=== PATIENT | female | born 1960 | race African-American/Black ===

== ENCOUNTER 2017-04-15 06:08 | Day surgery (SDC) | payer OTHER ==
[2017-04-15] MEDS ORDERED: LIDOCAINE HCL 2% (20ML MULTI-DOSE VIAL) NR ONE (07:14)
[2017-04-15] MEDS ORDERED: PROPOFOL 20 ML ONE ×2 (07:15)
[2017-04-15 07:21] VITALS: BMI 59.3
[2017-04-15 08:02] VITALS: TEMP 98.2
[2017-04-15 08:11] VITALS: PULSE 65
[2017-04-15 09:05] VITALS: BP 140/83
== END 2017-04-15 09:22 | disposition home or self-care (01) ==
LOC: JASU-ENDO 06:08
PROVIDERS: ATTEND Internal Medicine Gastroenterology
PROC: 0DB68ZX Excision of Stomach, Via Natural or Artificial Opening Endoscopic, Diagnostic (ICD-10-PCS; principal; 2017-04-15 07:30)
DX: Z01.818 Encounter for other preprocedural examination (principal); E66.9 Obesity, unspecified
CPT/HCPCS: 88305-TC; 88342-TC

== ENCOUNTER 2019-02-17 12:50 | Inpatient (IN) | payer OTHER ==
[2019-02-17] MEDS ORDERED: CLINDAMYCIN 600MG PREMIX IVPB 600 MG/50 ML BAG IVPB ONE (14:20)
--- NOTE | 2019-02-17 14:20 | PDOC ---
History of Present Illness - General Chief Complaint: Injury Stated Complaint: SLIP AND FALL Time Seen by Provider: 02/17/19 13:40 History Source: Patient Exam Limitations: No Limitations - History of Present Illness Initial Comments: 02/18/19 11:50 HPI: 58F PMH HTN BIBEMS after unwitnessed fall in her kitchen around 9:30am. Pt endorses LOC and not having eaten today. Denies preceding symptoms of nausea, warmth, chest pain, palpitations, abdominal pain. Pt currently complaining of knees and left foot pain, and low back pain. Denies post fall chest pain, palpitations, sob, n/v. Unknown headstrike but pt denies head and neck pain. Denies new numbness, tingling, and groin incontinence. Denies incontinence or tongue biting. Recent left knee replacement 11/2018; pt states her knee richie occasionally while walking. PCP - Dr. Ang Almaraz Meds - percocet, HCTZ, potassium Denies etoh, smoking, drug use Allergies reviewed No FHX SCD Past History - Past Medical History Allergies/Adverse Reactions: Allergies Allergy/AdvReac Type Severity Reaction Status Date / Time latex Allergy Verified 02/17/19 13:02 sulfamethoxazole Allergy Verified 02/17/19 13:02 Home Medications: Ambulatory Orders Hydrochlorothiazide 25 mg PO DAILY 04/14/17 Morphine Sulfate [Morphine Sulfate ER] 60 mg PO Q8H 04/14/17 Naproxen 500 mg PO BID PRN 04/14/17 Oxycodone HCl/Acetaminophen [Percocet 10-325 mg Tablet] 1 tab PO TID PRN Potassium Chloride [K-Dur -] 10 meq PO DAILY 04/14/17 Multivitamin [Daily Multiple Vitamin] 1 each PO DAILY 04/15/17 Cyanocobalamin [Vitamin B12 -] 100 mcg PO DAILY 02/17/19 Sennosides [Senna] 8.6 mg PO DAILY 02/17/19 Anemia: No Asthma: No Cancer: No Cardiac Disorders: No COPD: No CHF: No HTN: No Hypercholesterolemia: No - Surgical History Abdominal Surgery: No Appendectomy: No Cardiac Surgery: No Cholecystectomy: Yes Lung Surgery: No Neurologic Surgery: No Orthopedic Surgery: Yes (SUAD.ARTHROSCOPY,KNEE REPLAC-RIGHT) - Immunization History Immunization Up to Date: Yes - Psycho Social/Smoking Cessation Hx Smoking History: Never smoked Have you smoked in the past 12 months: No Information on smoking cessation initiated: No Hx Alcohol Use: No Drug/Substance Use Hx: No Hx Substance Use Treatment: No Review of Systems - Review of Systems Able to Perform ROS?: Yes Comments:: 02/18/19 11:50 ROS: CONSTITUTIONAL: Denies F / C HEENT: Denies headache, lightheadedness, dizziness, changes in vision / hearing RESP: Denies SOB CARD: Denies chest pain, palpitations GI: Denies N / V / D, abdominal pain, inability to tolerate PO NEURO: Denies new numbness, tingling, weakness Is the patient limited Japanese proficient: No *Physical Exam - Vital Signs Last Vital Signs Temp Pulse Resp BP Pulse Ox 97.5 F L 85 20 153/83 98 02/17/19 12:54 02/17/19 12:54 02/17/19 12:54 02/17/19 12:54 02/17/19 12:54 - Physical Exam 02/18/19 11:50 PE: GEN: NAD, comfortable, obese. AAOx3 HEENT: NC/AT, EOMI, PERRLA. CN II-XII grossly intact. No facial asymmetry. Normal voice. Supple neck w/ FROM w/o midline TTP. CV: S1/S2, RRR, no m/r/g LUNG: CTAB, no wheezes, crackles, rales, rhonchi. GI: soft, ndnt, +BS, no guarding, no rebound. EXTREMITIES: 3x3 warm and erythematous region overlying the lateral RLE. Mild TTP of the L knee and L foot at the arch. No bruising, abrasions, or lacerations of the LEs. SKIN: warm, dry, normal turgor PSYCH: normal mood and affect NEURO: Moving all extremities well. FROM UE and LE b/l. 5/5 bicep/tricep/administrative judge strength b/l. 5/5 UE strength b/l. 5/5 LE strength b/l. Sensation symmetric and intact throughout BACK: No obvious deformities, no step offs, no midline TTP. No signs of trauma. ED Treatment Course - LABORATORY CBC & Chemistry Diagram: 02/18/19 06:00 02/18/19 06:00 - RADIOLOGY Radiology Studies Ordered: Category Date Time Status HEAD CT WITHOUT CONTRAST [CT] Stat CT Scan 02/17/19 14:04 Ordered CHEST X-RAY PORTABLE* [RAD] Stat Radiology 02/17/19 14:04 Ordered FOOT-LEFT [RAD] Stat Radiology 02/17/19 14:05 Ordered KNEE 2 POS-LEFT [RAD] Stat Radiology 02/17/19 14:05 Ordered Medical Decision Making - Medical Decision Making 02/17/19 14:09 MDM: 58F BIBEMS w/ unwitnessed fall w/ +LOC. No prodromal symptoms. Neurovascularlly intact. Mild TTP of the knees and arch of left foot. There is an erythematous region of the lateral Right lower leg after hitting leg against couch. DDx - arrythmia, acs, lytes abnormality, dehydration - CBC, CMP, Cardiac - EKG - CXR; XR left knee and left foot - CT HEAD - Pain ctrl - Ancef for presumed cellulitis 02/17/19 15:08 EKG HR 82 KY 130 QRS 88 QTc 490 NSR w/ poor baseline 02/17/19 16:[address] Head no acute path per report admit tele // endorsed to Dr. Madsen; admitted tele-obs Discharge - Discharge Information Problems reviewed: Yes Clinical Impression/Diagnosis: Syncope Qualifiers: Syncope type: unspecified Qualified Code(s): R55 - Syncope and collapse - Follow up/Referral - Patient Discharge Instructions - Post Discharge Activity
[2019-02-17] MEDS ORDERED: CEFAZOLIN 1 GM in DEXTROSE 5%-WATER - 50 ML IVPB ONE (14:23)
--- NOTE | 2019-02-17 14:45 | PDOC ---
Documentation entered by Moni Ibrahim SCRIBE, acting as scribe for Donald Finney MD. Donald Finney MD: This documentation has been prepared by the Alexandria carlisle Adrianna, SCRIBE, under my direction and personally reviewed by me in its entirety. I confirm that the documentation accurately reflects all work, treatment, procedures, and medical decision making performed by me. Attending Attestation - Resident Resident Name: WilfridHonorio - ED Attending Attestation I have performed the following: I have examined & evaluated the patient, The case was reviewed & discussed with the resident, I agree w/resident's findings & plan, Exceptions are as noted - HPI HPI: The patient is a 58 year old female, with a significant PMH of HTN, who presents to the ED for evaluation s/p unwitnessed fall at home this morning. Patient endorses LOC, but is unsure if she hit her head. She complains of left knee and foot pain while in the ED. Allergies: Latex, sulfamethoxazole Surgical History: Right TKR. Bilateral knee arthroscopies. Cholecystectomy Social History: Denies EtOH, tobacco, or illicit drug use PCP: Dr. Almaraz - Physicial Exam PE: 02/17/19 14:41 Patient is awake and alert, morbidly obese, in no significant distress Normocephalic, atraumatic PERRLA, EOMI, no nystagmus Neck is supple, no obvious deformity, no midline tenderness CTA RRR abdomen soft, nontender nondistended Pelvis is stable 3 cm x 3 cm well demarcated erythematous warm to touch area to the lateral aspect of the right lower extremity, proximal to the lateral malleolus +2 pitting edema bilaterally Distal pulses decreased due to edema - Medical Decision Making 02/17/19 14:43 58-year-old female with hypertension, obesity, presents with unwitnessed syncope and mild case of right lower extremity cellulitis. Will obtain CT head/ EKG/CBC/CMP/cardiac profile. Will treat cellulitis with IV Ancef. Likely obs placement for syncope.
[2019-02-17] MEDS ORDERED: CEFAZOLIN 1 GM/D5W 1 GM/50 ML BAG ONE (14:55)
[2019-02-17] MEDS ORDERED: ACETAMINOPHEN 1000 MG/100 ML VIAL (NON FORMULARY) IVPB ONE (15:14)
[2019-02-17 15:34] LABS: BASO % 0.6 % (0-2.0); EOS % 2.5 % (0-4.5); HEMATOCRIT 35.2 % (32.4-45.2); LYMPH % 33.7 % (8-40); MCH 33.2 pg (25.7-33.7); MEAN CELL VOLUME 97.8 fl (80-96); MEAN PLT VOLUME 8.7 fl (7.5-11.1); MONO % 10.8 % (3.8-10.2); NEUT % 52.4 % (42.8-82.8); PLATELET COUNT 153 K/MM3 (134-434); RDW 13.3 % (11.6-15.6); WHITE BLOOD COUNT 5.6 K/mm3 (4.0-10.0)
[2019-02-17] MEDS ORDERED: ACETAMINOPHEN INJECTION 100 ML IVPB ONE (15:58)
[2019-02-17 16:16] LABS: ALBUMIN 3.4 g/dl (3.4-5.0); ALK PHOS 80 U/L (45-117); ANION GAP 2 MMOL/L (8-16); BILIRUBIN,TOTAL 0.8 mg/dL (0.2-1); BLOOD UREA NITROGEN 5.9 mg/dL (7-18); CHLORIDE 106 mmol/L (98-107); CO2 33 mmol/L (21-32); CREATININE 0.6 mg/dL (0.55-1.3); GLUCOSE,RANDOM 98 mg/dL (74-106); POTASSIUM 3.6 mmol/L (3.5-5.1); SGOT/AST 35 U/L (15-37); SGPT/ALT 24 U/L (13-61); SODIUM 141 mmol/L (136-145); TOT PROT 7.6 g/dl (6.4-8.2)
[2019-02-17 23:53] VITALS: BMI 50.8
[2019-02-17 23:59] LABS: COCAINE, UR NEGATIVE ng/ml (CUTOFF=300); METHADONE, UR NEGATIVE ng/ml (CUTOFF=300); PHENCYCLIDINE,URINE NEGATIVE ng/ml (CUTOFF=25); URINE AMPHETAMINES NEGATIVE ng/ml (CUTOFF=500); URINE BARBITURATES NEGATIVE ng/ml (CUTOFF=200); URINE BENZODIAZEPINES NEGATIVE ng/ml (CUTOFF=200)
[2019-02-18 00:01] LABS: OPIATES, URI POSITIVE ng/ml (CUTOFF=300)
[2019-02-18] MEDS ORDERED: DOCUSATE SODIUM 100 MG CAPSULE (FP) PO PRN (00:50)
[2019-02-18] MEDS ORDERED: ACETAMINOPHEN 325 MG TABLET (FP) PO ONE (01:00)
[2019-02-18] MEDS ORDERED: oxyCODONE HCL 5 MG TABLET PO ONE (01:00)
[2019-02-18 07:11] LABS: BASO % 0.6 % (0-2.0); EOS % 2.3 % (0-4.5); HEMATOCRIT 31.6 % (32.4-45.2); HEMOGLOBIN 10.9 GM/dL (10.7-15.3); LYMPH % 38.3 % (8-40); MCH 33.5 pg (25.7-33.7); MCHC 34.5 g/dl (32.0-36.0); MEAN CELL VOLUME 96.9 fl (80-96); MEAN PLT VOLUME 8.8 fl (7.5-11.1); MONO % 9.8 % (3.8-10.2); PLATELET COUNT 149 K/MM3 (134-434); RBC 3.26 M/mm3 (3.60-5.2); RDW 13.3 % (11.6-15.6); WHITE BLOOD COUNT 5.3 K/mm3 (4.0-10.0)
[2019-02-18 07:48] LABS: ALBUMIN 2.9 g/dl (3.4-5.0); BILIRUBIN,TOTAL 0.7 mg/dL (0.2-1); BLOOD UREA NITROGEN 5.1 mg/dL (7-18); CALCIUM 8.6 mg/dL (8.5-10.1); CREATININE 0.6 mg/dL (0.55-1.3); POTASSIUM 3.3 mmol/L (3.5-5.1); TOT PROT 6.6 g/dl (6.4-8.2)
[2019-02-18] MEDS ORDERED: ceFAZolin SODIUM 1 GM VIAL ONE ×2 (09:27→21:44)
[2019-02-18] MEDS ORDERED: DEXTROSE 5%-WATER - 50 ML IVPB ONE ×2 (09:27→21:44)
[2019-02-18] MEDS: morphine SO4 SUSTAINED ACTING 30 MG TABLET.SA PO SCH ×2 (09:49→21:48)
[2019-02-18] MEDS: CEFAZOLIN 1 GM in DEXTROSE 5%-WATER - 50 ML IVPB SCH ×2 (09:49→21:47)
[2019-02-18] MEDS: ACETAMINOPHEN 325 MG TABLET (FP) PO PRN ×2 (09:52→17:42)
[2019-02-18] MEDS: oxyCODONE HCL 5 MG TABLET PO PRN ×2 (09:52→17:43)
[2019-02-18] MEDS: MULTIVITAMINS (DAILY MVI) TABLET (FP) PO SCH (09:53)
[2019-02-18] MEDS: HEPARIN NA (PORCINE) 5,000 UNITS/ML 1ML VIAL SQ SCH ×2 (09:53→21:47)
[2019-02-18] MEDS: POTASSIUM CHLORIDE TABS 10 MEQ TABLET.ER (FP) PO SCH (09:53)
[2019-02-18] MEDS: HYDROCHLOROTHIAZIDE 25 MG TABLET (FP) PO SCH (09:53)
--- NOTE | 2019-02-18 09:57 | CON.CARD ---
Consult Consult Specialty:: cardiology' - History of Present Illness History of Present Illness: The patient is a 58 year old michael youssef, with a significant PMH of morbid obesity (s/p gastric sleeve surgery 2019),?sleep apnea, HTN, s/p bilateral knee replacements, who presents to the ED for evaluation s/p unwitnessed fall at home this morning. Patient endorses LOC, but is unsure if she hit her head. She complains of left knee and foot pain while in the ED. Pt denies prior hx of syncope. Allergies: Latex, sulfamethoxazole Surgical History: Bilateral knee replacements; Cholecystectomy Social History: Denies EtOH, tobacco, or illicit drug use PCP: Dr. Ang Almaraz Hx stress MIBI ? 2 years ago at [facility]. Denies hx AL. - History Source History Provided By: Patient, Medical Record Limitations to Obtaining History: Poor Historian - Past Medical History Cardio/Vascular: Yes: HTN Pulmonary: No: Asthma Reproductive: Yes: Postmenopausal ...: No - Past Surgical History Past Surgical History: Yes: Cholecystectomy, Joint Replacement (bilateral knees) - Alcohol/Substance Use Hx Alcohol Use: No - Smoking History Smoking history: Never smoked Have you smoked in the past 12 months: No Home Medications - Allergies Allergies/Adverse Reactions: Allergies Allergy/AdvReac Type Severity Reaction Status Date / Time latex Allergy Verified 02/17/19 13:02 sulfamethoxazole Allergy Verified 02/17/19 13:02 - Home Medications Home Medications: Ambulatory Orders Hydrochlorothiazide 25 mg PO DAILY 04/14/17 Morphine Sulfate [Morphine Sulfate ER] 60 mg PO Q8H 04/14/17 Naproxen 500 mg PO BID PRN 04/14/17 Oxycodone HCl/Acetaminophen [Percocet 10-325 mg Tablet] 1 tab PO TID PRN Potassium Chloride [K-Dur -] 10 meq PO DAILY 04/14/17 Multivitamin [Daily Multiple Vitamin] 1 each PO DAILY 04/15/17 Cyanocobalamin [Vitamin B12 -] 100 mcg PO DAILY 02/17/19 Sennosides [Senna] 8.6 mg PO DAILY 02/17/19 Family Medical History Family History: Denies Family Hx Cancer: Father (prostate CA) Review of Systems - Review of Systems Constitutional: reports: No Symptoms Eyes: reports: No Symptoms HENT: reports: No Symptoms Cardiovascular: reports: No Symptoms Respiratory: reports: No Symptoms Gastrointestinal: reports: No Symptoms - Risk Factors Known Risk Factors: Yes: Age, Hypertension, Physical Inactivity, Race, Other ( morbid obesity;) Vital Signs: Vital Signs Temperature 98.3 F 02/18/19 02:00 Pulse Rate 100 H 02/18/19 06:00 Respiratory Rate 20 02/18/19 06:00 Blood Pressure 113/57 L 02/18/19 06:00 O2 Sat by Pulse Oximetry (%) 95 02/17/19 23:00 - Other Data Labs, Other Data: CBC, BMP 02/18/19 06:00 02/18/19 06:00 Troponin, BNP 02/17/19 02/18/19 15:00 01:00 Troponin I < 0.02 < 0.02 Troponin, BNP 02/17/19 02/18/19 15:00 01:00 Troponin I < 0.02 < 0.02 Problem List - Problems (1) Syncope Assessment/Plan: TNI < 0.02 EKG: NSR; APCD and PVCs; ?old anterior AL; poor R wave progression. Plan: Avoid dehydration. Orthostatic vital signs. +opiates in blood; pt denies "addiction". F/u anemia. ECHO pending. F/u results of stress mIBI done ?2018 at [facility]. Carotid artery US. Code(s): R55 - SYNCOPE AND COLLAPSE (2) HTN (hypertension) Code(s): I10 - ESSENTIAL (PRIMARY) HYPERTENSION (3) Morbidly obese Code(s): E66.01 - MORBID (SEVERE) OBESITY DUE TO EXCESS CALORIES (4) Sleep apnea Assessment/Plan: sleep studies, in not already done. Code(s): G47.30 - SLEEP APNEA, UNSPECIFIED (5) History of bilateral knee replacement Code(s): Z96.653 - PRESENCE OF ARTIFICIAL KNEE JOINT, BILATERAL (6) Anemia Code(s): D64.9 - ANEMIA, UNSPECIFIED (7) H/O gastric bypass Assessment/Plan: Pt says she has lost 80 lbs since gastric sleeve several months ago at [facility] , and plans on losing 80 more lbs. Code(s): Z98.84 - BARIATRIC SURGERY STATUS (8) Thyroid disorder Assessment/Plan: low TSH; f/u free T4. Code(s): E07.9 - DISORDER OF THYROID, UNSPECIFIED (9) Opiate use Assessment/Plan: f/u hx, and consider possible relation to syncope. Code(s): F11.90 - OPIOID USE, UNSPECIFIED, UNCOMPLICATED (10) Hypokalemia Assessment/Plan: replete, and follow all electrolytes. Pt is on HCTZ for HTN; review new to continue vs new agent that may not result in electrolyte imbalance. Code(s): E87.6 - HYPOKALEMIA
[2019-02-18] MEDS ORDERED: CEFAZOLIN 1 GM/D5W 1 GM/50 ML BAG IVPB SCH (10:00)
[2019-02-18 13:36] LABS: MAGNESIUM 1.7 mg/dL (1.8-2.4)
--- NOTE | 2019-02-18 14:40 | EKG ---
Test Reason : Blood Pressure : / mmHG Vent. Rate : 076 BPM Atrial Rate : 076 BPM P-R Int : 142 ms QRS Dur : 098 ms QT Int : 424 ms P-R-T Axes : 021 -24 -09 degrees QTc Int : 477 ms SINUS RHYTHM WITH PREMATURE ATRIAL COMPLEXES OTHERWISE NORMAL ECG WHEN COMPARED WITH ECG OF 17-FEB-2019 14:51, PREMATURE VENTRICULAR COMPLEXES ARE NO LONGER PRESENT Confirmed by JOJO SCOTT, JIMBO ([id number]) on 02/18/2019 2:39:38 PM Referred By: IQRA MCDANIEL Confirmed By:JIMBO URIBE MD
--- NOTE | 2019-02-18 14:43 | EKG ---
Test Reason : Blood Pressure : / mmHG Vent. Rate : 082 BPM Atrial Rate : 082 BPM P-R Int : 130 ms QRS Dur : 088 ms QT Int : 420 ms P-R-T Axes : 023 -26 -05 degrees QTc Int : 490 ms POOR DATA QUALITY, INTERPRETATION MAY BE ADVERSELY AFFECTED SINUS RHYTHM WITH PREMATURE SUPRAVENTRICULAR COMPLEXES AND WITH OCCASIONAL PREMATURE VENTRICULAR COMPLEXES CANNOT RULE OUT ANTERIOR INFARCT , AGE UNDETERMINED ABNORMAL ECG WHEN COMPARED WITH ECG OF 28-NOV-2010 11:26, PREMATURE VENTRICULAR COMPLEXES ARE NOW PRESENT PREMATURE SUPRAVENTRICULAR COMPLEXES ARE NOW PRESENT MINIMAL CRITERIA FOR ANTERIOR INFARCT ARE NOW PRESENT NONSPECIFIC T WAVE ABNORMALITY NOW EVIDENT IN ANTERIOR LEADS QT HAS LENGTHENED Confirmed by JIMBO URIBE MD ([id number]) on 02/18/2019 2:43:12 PM Referred By: Confirmed By:JIMBO URIBE MD
--- NOTE | 2019-02-18 15:16 | HP ---
Admitting History and Physical - Admission History of Present Illness: The patient is a 58 year old female, with a significant PMH of morbid obesity (s /p gastric sleeve surgery 2019),?sleep apnea, HTN, and chronic pain syndrome due to b/l knee pain from multiple surgeries and chronic back pain(s/p bilateral knee replacements), who presents to the ED for evaluation s/p unwitnessed fall at home this morning. Patient endorses LOC but is unsure if she hit her head. She complains of left knee and foot pain while in the ED. Pt states that she was walking and fell and couldn't get up so she thinks she fell asleep? on the floor. EMS was called and was bought to the ED. In the ER pt also noted to have erythema on rt ankle and was started on IV ancef. - Past Medical History Cardiovascular: Yes: HTN Pulmonary: Yes: Asthma ...: No Musculoskeletal: Yes: Chronic low back pain, Osteoarthritis - Past Surgical History Past Surgical History: Yes: Cholecystectomy, Joint Replacement (bilateral knees) - Smoking History Smoking history: Never smoked Have you smoked in the past 12 months: No - Alcohol/Substance Use Hx Alcohol Use: No Home Medications - Allergies Allergies/Adverse Reactions: Allergies Allergy/AdvReac Type Severity Reaction Status Date / Time latex Allergy Verified 02/17/19 13:02 sulfamethoxazole Allergy Verified 02/17/19 13:02 - Home Medications Home Medications: Ambulatory Orders Hydrochlorothiazide 25 mg PO DAILY 04/14/17 Morphine Sulfate [Morphine Sulfate ER] 60 mg PO Q8H 04/14/17 Oxycodone HCl/Acetaminophen [Percocet 10-325 mg Tablet] 1 tab PO TID PRN Potassium Chloride [K-Dur -] 10 meq PO DAILY 04/14/17 Multivitamin [Daily Multiple Vitamin] 1 each PO DAILY 04/15/17 Cyanocobalamin [Vitamin B12 -] 100 mcg PO DAILY 02/17/19 Sennosides [Senna] 8.6 mg PO DAILY 02/17/19 Bupropion HCl [Wellbutrin Xl -] 150 mg PO DAILY tab.sr.24h 02/19/19 Cephalexin [Keflex] 500 mg PO TID #30 capsule 02/19/19 Pramipexole Dihydrochloride [Mirapex -] 0.25 mg PO BID tablet 02/19/19 Family Medical History Family History: Unremarkable Review of Systems - Review of Systems Constitutional: reports: Other (Syncope S/p Fall) Eyes: reports: No Symptoms HENT: reports: No Symptoms Neck: reports: No Symptoms Cardiovascular: reports: No Symptoms Respiratory: reports: No Symptoms Gastrointestinal: reports: No Symptoms Genitourinary: reports: No Symptoms Physical Examination Vital Signs: Vital Signs Temperature 98.2 F 02/18/19 10:00 Pulse Rate 93 H 02/18/19 10:00 Respiratory Rate 20 02/18/19 10:00 Blood Pressure 114/55 L 02/18/19 10:00 O2 Sat by Pulse Oximetry (%) 95 02/18/19 09:00 Constitutional: Yes: Obese HENT: Yes: WNL Neck: Yes: WNL, Supple Cardiovascular: Yes: WNL, Regular Rate and Rhythm Respiratory: Yes: WNL, Regular, CTA Bilaterally Gastrointestinal: Yes: WNL, Normal Bowel Sounds, Soft, Abdomen, Obese Extremities: Yes: Other ((+) erythema rt ankle) Edema: LLE: Trace, RLE: Trace Neurological: Yes: WNL, Alert, Oriented ...Motor Strength: WNL Labs: CBC, BMP 02/18/19 06:00 02/18/19 06:00 Problem List - Problems (1) Syncope Assessment/Plan: Admitted to tele Serial cpk/troponin Check echo Cardio consult Neuro consult ?Due to opiate use vs unsteady gait from obesity/OA Code(s): R55 - SYNCOPE AND COLLAPSE Qualifiers: Syncope type: unspecified Qualified Code(s): R55 - Syncope and collapse (2) Cellulitis Assessment/Plan: Cont IV ancef WBC is normal Pt is afebrile Code(s): L03.90 - CELLULITIS, UNSPECIFIED (3) HTN (hypertension) Assessment/Plan: BP stable Code(s): I10 - ESSENTIAL (PRIMARY) HYPERTENSION (4) Morbidly obese Code(s): E66.01 - MORBID (SEVERE) OBESITY DUE TO EXCESS CALORIES (5) Opiate use Code(s): F11.90 - OPIOID USE, UNSPECIFIED, UNCOMPLICATED (6) Sleep apnea Code(s): G47.30 - SLEEP APNEA, UNSPECIFIED
--- NOTE | 2019-02-18 15:55 | ECHO ---
Name: ALONSO SEGURA Exam:Adult Echocardiogram Study Date: 02/18/2019 01:17 PM Age: 58 yrs Reason For Study: SYNCOPE Height: 68 in Weight: 353 lb BSA: 2.6 m2 MMode/2D Measurements & Calculations IVSd: 1.00 cm Ao root diam: 2.8 cm LVIDd: 4.6 cm LA dimension: 3.4 cm LVIDs: 3.1 cm LVPWd: 0.99 cm EDV(Teich): 98.9 ml LVOT diam: 2.0 cm ESV(Teich): 38.3 ml LAV (MOD-bp): 48.1 ml Doppler Measurements & Calculations MV E max min: 75.7 cm/sec Ao V2 max: 199.5 cm/sec MV A max min: 73.2 cm/sec Ao max P.0 mmHg MV E/A: 1.0 Ao V2 mean: 133.5 cm/sec MV dec time: 0.16 sec Ao mean P.0 mmHg Ao V2 VTI: 32.9 cm MARIELENA(I,D): 2.3 cm2 MARIELENA(V,D): 2.0 cm2 LV V1 max P.3 mmHg SV(LVOT): 74.7 ml LV V1 mean P.5 mmHg LV V1 max: 125.6 cm/sec LV V1 mean: 81.6 cm/sec LV V1 VTI: 23.0 cm TR max min: 222.6 cm/sec PA V2 max: 129.0 cm/sec TR max P.8 mmHg PA max P.7 mmHg Med Peak E' Min: 11.2 cm/sec PI Vmax: 69.2 cm/sec Med E/e': 6.8 Lat Peak E' Min: 12.2 cm/sec Lat E/e': 6.2 Procedure A complete two-dimensional transthoracic echocardiogram was performed (2D, M-mode, Doppler and color flow Doppler). Left Ventricle The left ventricular size, thickness and function are normal. The left ventricular ejection fraction is normal. Ejection Fraction = 60-65%. The left ventricular wall motion is normal. Right Ventricle The right ventricle is normal in size and function. Atria Normal left and right atrial size and function. Mitral Valve There is no mitral regurgitation noted. Tricuspid Valve There is trace tricuspid regurgitation. Right ventricular systolic pressure is normal. Aortic Valve No hemodynamically significant valvular aortic stenosis. No aortic regurgitation is present. Pulmonic Valve There is no pulmonic valvular regurgitation. Great Vessels The aortic root is normal size. Pericardium/Pleura There is no pericardial effusion. Interpretation Summary The left ventricular size, thickness and function are normal The right ventricle is normal in size and function. There is trace tricuspid regurgitation. MD Ken Price 02/18/2019 03:54 PM
[2019-02-18] MEDS ORDERED: POTASSIUM CHLORIDE TABS 20 MEQ TABLET.ER (FP) PO ONE (19:01)
--- NOTE | 2019-02-18 21:59 | CONSULT ---
Consult - text type - Consultation Consultation Note: NEUROLOGY CONSULTATION is greatly appreciated: This 58 yo RH woman lives alone. She walks with a walker attributed to 14 total knee surgeries culminating in B/ L TKR's However, none of these interventions have improved chronic, progressive pains in her legs, now diffusely, that began in her early 40's. She describes burning pains in both legs with sharp, shooting, lightening-like, sharp pains that are worse at night and interrupt sleep. Patient acknowledges severe depression and "crying all the time." Maintained on: Hydrochlorothiazide; Morphine Sulfate 60 mg PO Q8H; Naproxen 500 mg PO BID PRN; Percocet 10-325 mg TID PRN; KCl and B12. Now admitted after falling in her kitchen attributed to "her broken walker." She fell to her left without dizziness or prodromal symptoms and struck her left shoulder. No head trauma or LOC. CT of head (reviewed): Normal. Now on Ceftin for right calf cellulitis. EXAM: Morbidly obese. Multiple knee surgieries. No evidence of external head trauma. Cellulitis right rosen NEURO: Awake, alert, Normal MS. Tearful CN II-XII: Normal Motor: No drift. Normal grasps. Normal ankle Dorsiflexion. Absent KJ' s but present AJ's. Coord: No FTN dystaxia Sensory: Feels vibration both feet. IMP: Essentially normal neurological exam. Mechanical fall without head injury Chronic leg pain Probably due to RLS. Depression. SUGGEST: Check B12, TSH, Fe++, TIBC, Ferritin. Continue Rx of infection Mobilize OO Bed to chair. Keep legs elevated. PT for gait with NEW Walker. Begin Pramipexole 0.25 mg PO BID and increase as necessary as out patient. Begin Bupropion XL 150 mg x 2 weeks then 300 mg Bariatric surgery consultation. Thank you very much, Honorio Ronquillo MD
[2019-02-19] MEDS: PRAMIPEXOLE DIHYDROCHLORIDE 0.25 MG TABLET PO SCH ×2 (00:07→10:04)
[2019-02-19] MEDS: oxyCODONE HCL 5 MG TABLET PO PRN ×2 (02:28→15:55)
[2019-02-19] MEDS: ACETAMINOPHEN 325 MG TABLET (FP) PO PRN (02:34)
[2019-02-19 06:56] LABS: BASO % 0.5 % (0-2.0); EOS % 2.9 % (0-4.5); HEMATOCRIT 32.9 % (32.4-45.2); HEMOGLOBIN 11.1 GM/dL (10.7-15.3); LYMPH % 44.9 % (8-40); MCH 32.6 pg (25.7-33.7); MCHC 33.6 g/dl (32.0-36.0); MEAN CELL VOLUME 96.9 fl (80-96); MEAN PLT VOLUME 8.7 fl (7.5-11.1); MONO % 9.2 % (3.8-10.2); NEUT % 42.5 % (42.8-82.8); PLATELET COUNT 154 K/MM3 (134-434); RDW 13.6 % (11.6-15.6); WHITE BLOOD COUNT 4.4 K/mm3 (4.0-10.0)
[2019-02-19 08:01] LABS: BILIRUBIN,TOTAL 0.6 mg/dL (0.2-1); BLOOD UREA NITROGEN 4.6 mg/dL (7-18); CALCIUM 8.8 mg/dL (8.5-10.1); CREATININE 0.5 mg/dL (0.55-1.3); POTASSIUM 3.5 mmol/L (3.5-5.1); TOT PROT 6.8 g/dl (6.4-8.2)
[2019-02-19] MEDS ORDERED: DEXTROSE 5%-WATER - 50 ML IVPB ONE (10:40)
[2019-02-19] MEDS ORDERED: ceFAZolin SODIUM 1 GM VIAL ONE (10:40)
[2019-02-19] MEDS: morphine SO4 SUSTAINED ACTING 30 MG TABLET.SA PO SCH (10:57)
[2019-02-19] MEDS: HYDROCHLOROTHIAZIDE 25 MG TABLET (FP) PO SCH (10:59)
[2019-02-19] MEDS: HEPARIN NA (PORCINE) 5,000 UNITS/ML 1ML VIAL SQ SCH (10:59)
[2019-02-19] MEDS: CEFAZOLIN 1 GM in DEXTROSE 5%-WATER - 50 ML IVPB SCH (10:59)
[2019-02-19] MEDS: MULTIVITAMINS (DAILY MVI) TABLET (FP) PO SCH (10:59)
[2019-02-19] MEDS: POTASSIUM CHLORIDE TABS 10 MEQ TABLET.ER (FP) PO SCH (10:59)
--- NOTE | 2019-02-19 14:53 | DS ---
Physical Examination Vital Signs: Vital Signs Temperature 97.6 F 02/19/19 10:00 Pulse Rate 91 H 02/19/19 10:00 Respiratory Rate 20 02/19/19 10:00 Blood Pressure 145/78 02/19/19 10:00 O2 Sat by Pulse Oximetry (%) 95 02/19/19 09:00 Constitutional: Yes: Well Nourished, Obese Neck: Yes: WNL, Supple Cardiovascular: Yes: WNL, Regular Rate and Rhythm Respiratory: Yes: WNL, Regular, CTA Bilaterally Gastrointestinal: Yes: WNL, Normal Bowel Sounds, Soft Extremities: Yes: Other (Minimal ertythema Rt ankle) Labs: CBC, BMP 02/19/19 06:10 02/19/19 06:10 Discharge Summary Problems reviewed: Yes Reason For Visit: SYNCOPE Current Active Problems Anemia (Acute) H/O gastric bypass (Acute) HTN (hypertension) (Acute) History of bilateral knee replacement (Acute) Hypokalemia (Acute) Morbidly obese (Acute) Opiate use (Acute) Sleep apnea (Acute) Syncope (Acute) Thyroid disorder (Acute) Hospital Course: Pt is a morbidly obese 58 y/o female who uses a cane who fell in her apartment and was than on the floor and as per pt she probably fell asleep and EMS was called. Pt was admitted to [facility] and had negtive cpk/troponin. Echo was unremarkable and pt was seen by cardio and neuro. CT scan head was unremarkable. Pt had physical therapy. Pt also treated fro erythema Rt ankle w/ IV ancef and is now changed to po keflex for another 10 days. Condition: Good - Instructions Diet, Activity, Other Instructions: 2 gram sodium diet Referrals: Ang Almaraz MD [Primary Care Provider] - Disposition: VNS/HOME HEALTH CARE - Home Medications Comprehensive Discharge Medication List: Ambulatory Orders Hydrochlorothiazide 25 mg PO DAILY 04/14/17 Morphine Sulfate [Morphine Sulfate ER] 60 mg PO Q8H 04/14/17 Oxycodone HCl/Acetaminophen [Percocet 10-325 mg Tablet] 1 tab PO TID PRN Potassium Chloride [K-Dur -] 10 meq PO DAILY 04/14/17 Multivitamin [Daily Multiple Vitamin] 1 each PO DAILY 04/15/17 Cyanocobalamin [Vitamin B12 -] 100 mcg PO DAILY 02/17/19 Sennosides [Senna] 8.6 mg PO DAILY 02/17/19 Bupropion HCl [Wellbutrin Xl -] 150 mg PO DAILY tab.sr.24h 02/19/19 Cephalexin [Keflex] 500 mg PO TID #30 capsule 02/19/19 Pramipexole Dihydrochloride [Mirapex -] 0.25 mg PO BID tablet 02/19/19
[2019-02-19 15:38] VITALS: BP 155/84; PULSE 92; TEMP 98.2
--- NOTE | 2019-02-19 19:50 | CONSULT ---
Consult - text type - Consultation Consultation Note: NEUROLOGY PROGRESS Events reviewed. Patient examined. Pt slept well last night with decreased pain after Pramipexole. D/C'ed to home this PM on oral antibiotics. Patient has additional new meds on D/C including Bupropion XL 150 and Pramipexole 0.25 BID EXAM: Obese. - Emily's Normal strength. Gait: stable with slight waddle and antalgic right foot. IMP: Severe RLS- sleep last night suggests possible pramipexole response. Plan: Neuro f/u to monitor Pramipexole Rx and increase Bupropion XL to 300 mg if tolerated. Thank you very much, Honorio Ronquillo MD
[2019-02-19] MEDS ORDERED: ACETAMINOPHEN 325 MG TABLET (FP) PO ONE (20:45)
[2019-02-19] MEDS ORDERED: oxyCODONE HCL 5 MG TABLET PO ONE (20:45)
== END 2019-02-19 22:00 | disposition home health service (06) | DRG 312 ==
LOC: JER 12:50 → JERBED 16:54 → OBSVTOIN 23:25 → J4W 02-18 00:17
PROVIDERS: ADMIT Internal Medicine; ATTEND Internal Medicine
DX: R55 Syncope and collapse (principal); Z68.43 Body mass index [BMI] 50.0-59.9, adult; L03.115 Cellulitis of right lower limb; W19.XXXA Unspecified fall, initial encounter; E66.01 Morbid (severe) obesity due to excess calories; G47.30 Sleep apnea, unspecified; F11.90 Opioid use, unspecified, uncomplicated; E87.6 Hypokalemia; E86.0 Dehydration; G25.81 Restless legs syndrome; I10 Essential (primary) hypertension; D64.9 Anemia, unspecified; E07.9 Disorder of thyroid, unspecified
CPT/HCPCS: 36415; 70450-TC; 71045-TC-FY; 73560-TC-LT-FY; 73630-TC-LT; 80053; 80061; 80307; 82550; 82553; 82607; 83540; 83550; 83721; 83735; 84439; 84443; 84484; 85025; 87040; 93005; 93010; 93306-TC; 97116-GP; 97161-GP; 99283-25; G0378; J0131; J1644

== ENCOUNTER 2022-08-05 20:13 | Emergency (ER) | payer OTHER ==
[2022-08-05 20:24] VITALS: BP 135/66; PULSE 92; RESP 18; TEMP 98.1; BMI 53.8
[2022-08-05] MEDS ORDERED: TETANUS AND DIPHTHERIA TOXOID 0.5 ML DISP.SYRIN IM ONE (21:29)
[2022-08-05] MEDS ORDERED: ACETAMINOPHEN 325 MG TABLET (FP) PO ONE (21:30)
[2022-08-05] MEDS ORDERED: ACETAMINOPHEN 325 MG TABLET (FP) ONE (21:35)
[2022-08-05] MEDS ORDERED: DIPHTH,PERTUSS(ACELL),TET 0.5 ML DISP.SYRIN IM ONE ×2 (21:42→21:48)
== END 2022-08-05 23:26 | disposition home or self-care (01) ==
LOC: JER 20:13
PROC: 3E0234Z Introduction of Serum, Toxoid and Vaccine into Muscle, Percutaneous Approach (ICD-10-PCS; principal; 2022-08-05)
PROC: 0HQ1XZZ Repair Face Skin, External Approach (ICD-10-PCS; 2022-08-05)
DX: S09.90XA Unspecified injury of head, initial encounter (principal); S01.112A Laceration without foreign body of left eyelid and periocular area, initial encounter; R55 Syncope and collapse; W07.XXXA Fall from chair, initial encounter; Y93.I9 Activity, other involving external motion; Y92.009 Unspecified place in unspecified non-institutional (private) residence as the place of occurrence of the external cause
CPT/HCPCS: 12002; 70450-TC; 90471; 90715; 99284-25